=== PATIENT | female | born 1990 | race Two or more races ===

== ENCOUNTER 2018-03-09 06:32 | Emergency (ER) | payer MEDICAID, OTHER ==
[~2018-03-09] VITALS: Ht 157.5 cm; Wt 81.0 kg
[~2018-03-09 06:32] MED LIST: ALLE30TA3
[2018-03-09 06:35] VITALS: BP 130/74; PULSE 114; RESP 19; TEMP 98.3; O2SAT 100
[2018-03-09] MEDS ORDERED: IBUPROFEN 800 MG TAB PO ONE (07:15)
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
[2018-03-09 09:48] VITALS: BP 118/60; PULSE 67; RESP 17; TEMP 98.6; O2SAT 99
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
[2018-03-09] MEDS ORDERED: IBUP1TAB7 PO (09:57)
[2018-03-09] MEDS ORDERED: CYCL10TA PO (09:57)
[2018-03-09 10:21] VITALS: BP 118/60
== END 2018-03-09 10:20 | disposition home or self-care (01) ==
LOC: NEPD 06:32
DX: S16.1XXA Strain of muscle, fascia and tendon at neck level, initial encounter (principal); R51 Headache; M25.571 Pain in right ankle and joints of right foot; Y04.2XXA Assault by strike against or bumped into by another person, initial encounter
CPT/HCPCS: 70450; 72125; 84703